=== PATIENT | male | born 1940 | race Caucasian/White ===

== ENCOUNTER 2017-03-21 22:11 | Inpatient (IN) | payer OTHER ==
[~2017-03-21] VITALS: Ht 177.8 cm; Wt 116.8 kg
[~2017-03-21 22:11] MED LIST: ADVAIR HFA120 INHAL1 IH; BENADRYL ALLERG25 MG PO; CARDIZEM CD,CA240 MG PO; DIGOXIN250 MCG PO; ELIQUIS5 MG PO; FLOMAX0.4 MG PO; LEVOFLOXACIN750 MG PO; LISINOPRIL20 MG PO; ZANTAC150 MG PO
[2017-03-21 23:15] LABS: CARBON DIOXIDE (BICARBONATE) 31.9 MEQ/L (20-31)
[2017-03-21 23:16] LABS: HEMATOCRIT 38.1 % (38.0-50.0); MCH 32.8 PG (29.0-34.0); MCHC 32.8 G/DL (30.0-36.0); MEAN PLAT.VOLUME 11.4 uM^3 (9.0-12.4); PLATELET COUNT 234 K/uL (156-360); RBC DIS.WIDTH-CV 14.7 % (11.8-14.6); RBC DIS.WIDTH-SD 53.5 % (39-53); RED BLOOD COUNT 3.81 M/uL (4.00-5.50); WHITE BLOOD COUNT 13.8 K/uL (4.1-10.2)
[2017-03-21 23:43] LABS: ANION GAP 8 MEQ/L (2-14); CHLORIDE 104 MEQ/L (99-109); GFR ESTIMATE (CALCULATED) 57 mL/min/; GLUCOSE 100 mg/dL (70-99); POTASSIUM 4.6 MEQ/L (3.7-5.4); SAMPLE HEMOLYSIS CHECK 0; SAMPLE ICTERIC CHECK 0; SAMPLE LIPEMIA CHECK 0; SODIUM 138 MEQ/L (136-147); UREA NITROGEN (BUN) 18 mg/dL (9-23)
[2017-03-21 23:46] LABS: TROP-I INTERPRETATION NEGATIVE; TROPONIN-I 0.01 ng/mL (0.0-0.30)
[2017-03-22 01:51] VITALS: BP 145/70
[2017-03-22 04:08] VITALS: BP 114/54
[2017-03-22 05:14] LABS: HEMATOCRIT 33.3 % (38.0-50.0); MCH 33.5 PG (29.0-34.0); MCV 101.5 FL (86-99); MEAN PLAT.VOLUME 11.5 uM^3 (9.0-12.4); PLATELET COUNT 204 K/uL (156-360); RBC DIS.WIDTH-SD 55.1 % (39-53); RED BLOOD COUNT 3.28 M/uL (4.00-5.50); WHITE BLOOD COUNT 19.5 K/uL (4.1-10.2)
[2017-03-22 05:44] LABS: EOSINOPHIL (%) 0 % (0-5); IMMATURE GRANULOCYTE (%) 0.5 % (0.0-0.7); IMMATURE GRANULOCYTE COUNT 0.1 K/uL; INSTRUMENT ABS NEUTROPHIL CT 16.9 K/uL; LYMPHOCYTE COUNT 1.6 K/uL (1.0-2.8); MONOCYTE (%) 4.2 % (3-12); MONOCYTE COUNT 0.8 K/uL (0-0.8); NEUTROPHIL COUNT 16.9 K/uL (1.8-6.4)
[2017-03-22 05:49] LABS: ALKALINE PHOSPHATASE 58 IU/L (3-129); ANION GAP 7 MEQ/L (2-14); CHLORIDE 107 MEQ/L (99-109); DIRECT BILIRUBIN 0.2 mg/dL (0.0-0.3); GFR ESTIMATE (CALCULATED) 53 mL/min/; GLUCOSE 110 mg/dL (70-99); MAGNESIUM 2.4 mg/dl (1.3-2.7); SAMPLE HEMOLYSIS CHECK 0; SAMPLE ICTERIC CHECK 0; SAMPLE LIPEMIA CHECK 0; SODIUM 139 MEQ/L (136-147); TOTAL BILIRUBIN 0.7 MG/DL (0.0-1.0); UREA NITROGEN (BUN) 20 mg/dL (9-23)
[2017-03-22 07:26] VITALS: BP 125/58
[2017-03-22] MEDS ORDERED: FLOMAX0.4 MG PO (11:11)
[2017-03-22] MEDS ORDERED: LISINOPRIL20 MG PO (11:15)
[2017-03-22] MEDS ORDERED: ALLERGY25 M4 PO (11:21)
[2017-03-22 11:28] VITALS: BP 133/61
[2017-03-22 15:05] VITALS: BP 130/60
[2017-03-22 19:45] VITALS: BP 134/64
[2017-03-23 03:14] VITALS: BP 136/78
[2017-03-23 05:24] LABS: HEMATOCRIT 32.1 % (38.0-50.0); MCH 33.5 PG (29.0-34.0); MCV 101.6 FL (86-99); MEAN PLAT.VOLUME 12.1 uM^3 (9.0-12.4); PLATELET COUNT 206 K/uL (156-360); RBC DIS.WIDTH-CV 15.4 % (11.8-14.6); RBC DIS.WIDTH-SD 56.9 % (39-53); RED BLOOD COUNT 3.16 M/uL (4.00-5.50); WHITE BLOOD COUNT 15.3 K/uL (4.1-10.2)
[2017-03-23 05:53] LABS: ALKALINE PHOSPHATASE 57 IU/L (3-129); ANION GAP 5 MEQ/L (2-14); CHLORIDE 107 MEQ/L (99-109); GFR ESTIMATE (CALCULATED) 57 mL/min/; GLUCOSE 109 mg/dL (70-99); POTASSIUM 4.7 MEQ/L (3.7-5.4); SAMPLE HEMOLYSIS CHECK 0; SAMPLE ICTERIC CHECK 0; SAMPLE LIPEMIA CHECK 0; SODIUM 137 MEQ/L (136-147); TOTAL BILIRUBIN 0.7 MG/DL (0.0-1.0); UREA NITROGEN (BUN) 18 mg/dL (9-23)
[2017-03-23 07:15] VITALS: BP 111/63
[2017-03-23 12:02] VITALS: BP 117/58
[2017-03-23 15:42] VITALS: BP 124/65
[2017-03-23 19:58] VITALS: BP 145/74
[2017-03-24] VITALS (8 sets, daily range): BP systolic 131–146; BP diastolic 62–65
[2017-03-24 05:57] LABS: HEMATOCRIT 34.4 % (38.0-50.0); MCH 33.7 PG (29.0-34.0); MCHC 33.4 G/DL (30.0-36.0); MCV 100.9 FL (86-99); MEAN PLAT.VOLUME 12.6 uM^3 (9.0-12.4); PLATELET COUNT 222 K/uL (156-360); RBC DIS.WIDTH-CV 15.3 % (11.8-14.6); RED BLOOD COUNT 3.41 M/uL (4.00-5.50); WHITE BLOOD COUNT 9.6 K/uL (4.1-10.2)
[2017-03-24 06:15] LABS: ALKALINE PHOSPHATASE 63 IU/L (3-129); ANION GAP 9 MEQ/L (2-14); CHLORIDE 104 MEQ/L (99-109); GFR ESTIMATE (CALCULATED) > 59 mL/min/; POTASSIUM 4.5 MEQ/L (3.7-5.4); SAMPLE HEMOLYSIS CHECK 0; SAMPLE ICTERIC CHECK 0; SAMPLE LIPEMIA CHECK 0; SODIUM 135 MEQ/L (136-147); TOTAL BILIRUBIN 0.6 MG/DL (0.0-1.0); UREA NITROGEN (BUN) 15 mg/dL (9-23)
[2017-03-24 06:16] LABS: GLUCOSE 172 mg/dL (70-99)
[2017-03-24] MEDS ORDERED: FLONASE16 G1 BOTH NARES (15:19)
[2017-03-25 00:08] VITALS: BP 138/70
[2017-03-25 03:37] VITALS: BP 118/61
[2017-03-25 07:49] VITALS: BP 134/62
[2017-03-25] MEDS ORDERED: CEFTIN500 MG PO (09:53)
[2017-03-25] MEDS ORDERED: PREDNISONE20 MG PO (09:53)
[2017-03-25] MEDS ORDERED: COMBIVENT RESPIM4 GM IH (09:53)
== END 2017-03-25 11:33 | disposition home or self-care (01) | DRG 190 ==
LOC: EME 22:11 → 4EAST 03-22 00:11 → EDOF 03-22 00:11 → ENRESERV 03-22 00:14 → EDOF 03-22 00:18 → ENRESERV 03-22 00:28 → 4EAST 03-22 01:39 → ENRESERV 03-24 06:30 → 3EAST 03-24 12:00 → ENRESERV 03-24 12:06 → 4EAST 03-24 12:06 → 3EAST 03-24 14:10
PROVIDERS: Emergency Medicine; Internal Medicine; Physician Assistant Medical
DX: J44.0 Chronic obstructive pulmonary disease with (acute) lower respiratory infection (principal); J18.9 Pneumonia, unspecified organism; J96.02 Acute respiratory failure with hypercapnia; J96.01 Acute respiratory failure with hypoxia; N17.9 Acute kidney failure, unspecified; I48.92 Unspecified atrial flutter; I47.1 Supraventricular tachycardia; G47.33 Obstructive sleep apnea (adult) (pediatric); E66.8 Other obesity; I12.9 Hypertensive chronic kidney disease with stage 1 through stage 4 chronic kidney disease, or unspecified chronic kidney disease; J20.9 Acute bronchitis, unspecified; J44.1 Chronic obstructive pulmonary disease with (acute) exacerbation; J30.2 Other seasonal allergic rhinitis; I48.0 Paroxysmal atrial fibrillation; I51.7 Cardiomegaly; K21.9 Gastro-esophageal reflux disease without esophagitis; E78.5 Hyperlipidemia, unspecified; N18.9 Chronic kidney disease, unspecified; N40.0 Benign prostatic hyperplasia without lower urinary tract symptoms; Z68.38 Body mass index [BMI] 38.0-38.9, adult; Z87.01 Personal history of pneumonia (recurrent); Z87.891 Personal history of nicotine dependence; Z98.41 Cataract extraction status, right eye; Z98.42 Cataract extraction status, left eye; Z83.79 Family history of other diseases of the digestive system; Z81.8 Family history of other mental and behavioral disorders; Z68.39 Body mass index [BMI] 39.0-39.9, adult
CPT/HCPCS: 71020; 71250; 80048; 80053; 80076; 82803; 83605; 83735; 83880; 84484; 85025; 85027; 87040; 87070; 87205; 93005; 94640; 94640 76; 94760; 94799; 99202; 99281; 99285; J0456; J0696; J1650; J2543; J2930; J3475; J7030; J7050; J7120; J7512